=== PATIENT | male | born 1945 | race Caucasian/White ===

== ENCOUNTER → 2017-12-11 | Outpatient (CLI) | payer MEDICARE | END | disposition home or self-care (01) | LOC: SHCH 13:54 | PROVIDERS: ATTEND Internal Medicine Cardiovascular Disease | DX: R00.1 Bradycardia, unspecified (principal); R06.02 Shortness of breath | CPT/HCPCS: 93306 ==

== ENCOUNTER → 2019-02-18 | Outpatient (CLI) | payer MEDICARE | END | disposition home or self-care (01) | LOC: RAH 10:31 | PROVIDERS: ATTEND Urology | DX: N32.89 Other specified disorders of bladder (principal); N40.0 Benign prostatic hyperplasia without lower urinary tract symptoms; R31.0 Gross hematuria | CPT/HCPCS: 76770 ==

== ENCOUNTER → 2019-07-16 | Outpatient (CLI) | payer MEDICARE | END | disposition home or self-care (01) | LOC: SHCH 13:30 | PROVIDERS: ATTEND Internal Medicine Cardiovascular Disease | DX: I11.9 Hypertensive heart disease without heart failure (principal); I65.23 Occlusion and stenosis of bilateral carotid arteries; I25.810 Atherosclerosis of coronary artery bypass graft(s) without angina pectoris | CPT/HCPCS: 93306; 93880 ==

== ENCOUNTER → 2019-08-13 | Outpatient (CLI) | payer MEDICARE | END | disposition home or self-care (01) | LOC: RAH 08:57 | PROVIDERS: ATTEND Internal Medicine Cardiovascular Disease | DX: I20.9 Angina pectoris, unspecified (principal) | CPT/HCPCS: 78452; 93017; 96374; A9500 ×2 ==

== ENCOUNTER → 2025-08-06 | Outpatient (CLI) | payer OTHER ==
--- NOTE | 2025-08-07 06:22 | HMCIMG ---
EXAMINATION: NONCONTRAST MR EXAMINATION OF THE RIGHT KNEE. CLINICAL HISTORY: Internal derangement. COMPARISON: None provided. TECHNIQUE: Multiplanar, multisequence MR imaging of the right knee. FINDINGS: Motion artifacts limit evaluation. In the medial compartment, there is horizontal tear of the posterior horn and body of the medial meniscus with mild body segment extrusion. Mild posterior medial capsular edema. There is mild to moderate diffuse weight bearing medial femoral chondral thinning. There is 0.8 x0.6 x1.1 cm (AP by transverse by craniocaudal) chondral body in the semimembranosus bursa. There are multiple small chondral bodies posterior to the posterior horn medial meniscus. In the lateral compartment, the meniscus is intact. There is moderate posterior, central inner lateral tibial chondral thinning. In the patellofemoral compartment, there is moderate to advanced lateral patellar chondral loss. The anterior and posterior cruciate ligaments are intact. Iliotibial band, fibular collateral ligament, biceps femoris tendon, conjoined tendon, and popliteus tendon are intact. The medial collateral ligament is intact. The extensor mechanism and patellar retinaculum are intact. There is moderate suprapatellar joint effusion. There is no bone marrow signal abnormality seen to suggest fracture, avascular necrosis, or osteomyelitis. The musculature surrounding the knee demonstrate normal bulk and signal. IMPRESSION: 1. Horizontal tear of the posterior horn and body of the medial meniscus with mild body segment extrusion. 2. Moderate suprapatellar joint effusion. 3. Chondral bodies in the semimembranosus bursa and posterior to the posterior horn of the medial meniscus. 4. Moderate to advanced chondral thinning/loss in multiple compartments. 5. Motion artifacts limiting evaluation. /[place]
== END | disposition home or self-care (01) ==
LOC: RAH 13:19
PROVIDERS: ATTEND Student in an Organized Health Care Education/Training Program
DX: S83.241A Other tear of medial meniscus, current injury, right knee, initial encounter (principal); M25.461 Effusion, right knee; R60.0 Localized edema; M23.91 Unspecified internal derangement of right knee; X58.XXXA Exposure to other specified factors, initial encounter; Y93.89 Activity, other specified; Y92.89 Other specified places as the place of occurrence of the external cause; Y99.8 Other external cause status
CPT/HCPCS: 73721